=== PATIENT | male | born 1985 | race African-American/Black ===

== ENCOUNTER 2017-11-23 23:14 | Emergency (ER) | payer OTHER ==
[~2017-11-23] VITALS: Ht 172.7 cm; Wt 154.2 kg
[~2017-11-23 23:14] MED LIST: AMOXICILLIN875 MG PO; BACTRIM DS TAB1 EACH PO; ERYTHROMYCIN E3.5 G3 OP; FLEXERIL PO; FLONASE 0.05%50 MCG NASAL; IBUPROFEN 600600 M1 PO; IBUPROFEN 800800 M1 PO; IBUPROFEN 800800 MG PO; NAPROSYN500 MG PO; NOHOMEMEDICATIONS; NORCO 5-325 TA1 EACH PO; PROMETHAZINE-C120 ML PO; SUDAFED30 MG PO; TRAMADOL 50 MG50 MG PO; ULTRAM 50MG TAB50 MG PO; ZPAK PO
[2017-11-23] MEDS ORDERED: TESSALON PERLE100 MG PO (23:53)
[2017-11-23] MEDS ORDERED: PREDNISONE 20 M20 MG PO (23:53)
== END 2017-11-24 01:40 | disposition home or self-care (01) ==
LOC: ER 23:14
DX: J06.9 Acute upper respiratory infection, unspecified (principal)

== ENCOUNTER 2019-08-21 10:29 | Emergency (ER) | payer OTHER ==
[~2019-08-21] VITALS: Ht 172.7 cm; Wt 154.2 kg
[~2019-08-21 10:29] MED LIST changes: +PREDNISONE 20 M20 MG PO; +TESSALON PERLE100 MG PO
[2019-08-21 11:39] LABS: ABSOLUTE NEUTROPHILS 4.7 thou/uL (1.4-8.2); BASOPHILS 0.7 % (0.0-2.0); EOSINOPHILS 4.1 % (0.0-3.0); HEMATOCRIT 43.3 % (42.0-52.0); HEMOGLOBIN 14.5 gm/dL (14.0-18.0); LYMPHOCYTES 25.1 % (24.0-44.0); MCH 28.5 pg (26.0-34.0); MCHC 33.5 g/dL (28.0-37.0); MONOCYTES 6.7 % (1.0-8.0); PLATELET COUNT 238 thou/uL (150-400); POLYS 63.4 % (36.0-66.0); RDW 15.3 % (10.5-14.5); WBC 7.4 thou/uL (4.0-11.0)
[2019-08-21 11:46] LABS: ANION GAP 9 mmol/L (7-16); BUN 10 mg/dL (7-18); CALCIUM 9.5 mg/dL (8.5-10.1); CHLORIDE 104 mmol/L (98-107); CO2 27 mmol/L (21-32); CREATININE 1.3 mg/dL (0.7-1.3); GLUCOSE 110 mg/dL (74-106); POTASSIUM 4.2 mmol/L (3.5-5.1)
[2019-08-21 11:55] LABS: TROPONIN-I <0.06 ng/mL (<0.06)
[2019-08-21 11:59] LABS: SODIUM 140 mmol/L (136-145)
[2019-08-21 12:45] VITALS: BP 110/62
--- NOTE | 2019-08-22 07:59 | EKG ---
[place] [address] [employer] 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: [facility] : 1985 Requested By: Matt Lynch Order Number: [id number] MD: Theron King Measurements Intervals [place] Rate: 72 P: 45 CO: 177 QRS: -15 QRSD: 89 T: -26 QT: 377 QTc: 413 Interpretive Statements Sinus rhythm Nonspecific T wave abnormality No previous ECG available for comparison Electronically Signed On 08-22-2019 7:59:09 WINDING RACK OPERATOR by Theron King [email or web address] <ELECTRONICALLY SIGNED> By: Theron King MD, [facility] 08/22/19 [id number] Theron King MD, FACC /EPI
== END 2019-08-21 12:46 | disposition home or self-care (01) ==
LOC: ER 10:29
PROVIDERS: Emergency Medicine
DX: R60.0 Localized edema (principal); R05 Cough

== ENCOUNTER 2020-03-24 21:53 | Emergency (ER) | payer OTHER ==
[~2020-03-24] VITALS: Ht 172.7 cm; Wt 154.2 kg
[2020-03-24 21:59] VITALS: BP 135/69
[2020-03-25 00:20] LABS: ABSOLUTE NEUTROPHILS 4.7 thou/uL (1.4-8.2); BASOPHILS 0.7 % (0.0-2.0); HEMATOCRIT 42.1 % (42.0-52.0); HEMOGLOBIN 14.4 gm/dL (14.0-18.0); LYMPHOCYTES 27.2 % (24.0-44.0); MCH 28.9 pg (26.0-34.0); MCHC 34.1 g/dL (28.0-37.0); MCV 84.7 fL (80.0-100.0); PLATELET COUNT 237 thou/uL (150-400); POLYS 63.1 % (36.0-66.0); RBC 4.98 mil/uL (4.50-6.00); RDW 15.3 % (10.5-14.5); WBC 7.4 thou/uL (4.0-11.0)
[2020-03-25 00:32] LABS: CALCIUM 8.4 mg/dL (8.5-10.1); CREATININE 1.3 mg/dL (0.7-1.3); POTASSIUM 3.9 mmol/L (3.5-5.1)
[2020-03-25 00:38] LABS: ALBUMIN 3.5 g/dL (3.4-5.0); TOTAL BILIRUBIN 0.4 mg/dL (0.2-1.0); TOTAL PROTEIN 7.7 g/dL (6.4-8.2)
== END 2020-03-25 01:17 | disposition home or self-care (01) ==
LOC: ER 21:53
PROVIDERS: Emergency Medicine
DX: R60.0 Localized edema (principal); M79.604 Pain in right leg; M79.605 Pain in left leg; I10 Essential (primary) hypertension

== ENCOUNTER 2020-11-22 08:34 | Emergency (ER) | payer OTHER ==
[~2020-11-22] VITALS: Ht 172.7 cm; Wt 171.9 kg
[2020-11-22 09:44] VITALS: BP 110/58
== END 2020-11-22 09:45 | disposition home or self-care (01) ==
LOC: ER 08:34
DX: M25.571 Pain in right ankle and joints of right foot (principal); E11.9 Type 2 diabetes mellitus without complications

== ENCOUNTER 2021-01-25 12:28 | Emergency (ER) | payer OTHER ==
[~2021-01-25] VITALS: Ht 170.2 cm; Wt 149.7 kg
[2021-01-25] MEDS ORDERED: METFORMIN HCL500 MG PO (12:50)
[2021-01-25] MEDS ORDERED: DOXYCYCLINE 10100 MG PO (13:39)
[2021-01-25 13:52] VITALS: BP 142/76
== END 2021-01-25 13:55 | disposition home or self-care (01) ==
LOC: ER 12:28
DX: S30.861A Insect bite (nonvenomous) of abdominal wall, initial encounter (principal); E11.9 Type 2 diabetes mellitus without complications; W57.XXXA Bitten or stung by nonvenomous insect and other nonvenomous arthropods, initial encounter; Y93.89 Activity, other specified; Y92.89 Other specified places as the place of occurrence of the external cause; Y99.9 Unspecified external cause status

== ENCOUNTER 2021-02-12 19:45 | Emergency (ER) | payer OTHER ==
[~2021-02-12] VITALS: Ht 172.7 cm; Wt 155.1 kg
[~2021-02-12 19:45] MED LIST changes: +DOXYCYCLINE 10100 MG PO; +METFORMIN HCL500 MG PO
[2021-02-12 20:50] LABS: BASOPHILS 0.5 % (0.0-2.0); EOSINOPHILS 1.2 % (0.0-3.0); HEMATOCRIT 41.1 % (42.0-52.0); LYMPHOCYTES 14.8 % (24.0-44.0); MCH 28.6 pg (26.0-34.0); MCHC 34.2 g/dL (28.0-37.0); MCV 83.8 fL (80.0-100.0); MONOCYTES 7.9 % (1.0-8.0); PLATELET COUNT 256 thou/uL (150-400); POLYS 75.6 % (36.0-66.0); RDW 15.2 % (10.5-14.5); WBC 9.2 thou/uL (4.0-11.0)
[2021-02-12 20:58] LABS: ANION GAP 10 mmol/L (7-16); BUN 9 mg/dL (7-18); CALCIUM 9.6 mg/dL (8.5-10.1); CHLORIDE 103 mmol/L (98-107); CO2 26 mmol/L (21-32); CREATININE 1.4 mg/dL (0.7-1.3); GLUCOSE 108 mg/dL (74-106); POTASSIUM 4.2 mmol/L (3.5-5.1); SODIUM 139 mmol/L (136-145)
[2021-02-12 21:09] LABS: ALBUMIN 3.6 g/dL (3.4-5.0); LIPASE 94 U/L (73-393); SGOT 18 U/L (15-37); SGPT 25 U/L (16-63); TOTAL BILIRUBIN 0.4 mg/dL (0.2-1.0); TOTAL PROTEIN 7.8 g/dL (6.4-8.2); TROPONIN-I <0.06 ng/mL (<0.06)
[2021-02-12] MEDS ORDERED: LORATIDINE 10 M10 M1 PO (21:55)
[2021-02-12 22:00] VITALS: BP 127/80
--- NOTE | 2021-02-13 07:05 | EKG ---
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 : 1985 Requested By: Justin Boone Order Number: [id number] MD: Phuc Irby Measurements Intervals [place] Rate: 90 P: 57 ID: 162 QRS: -27 QRSD: 83 T: 10 QT: 336 QTc: 411 Interpretive Statements Sinus rhythm Borderline left axis deviation Abnormal R-wave progression, early transition Compared to ECG 08/21/2019 11:36:12 T-wave abnormality no longer present Electronically Signed On 02-13-2021 7:05:42 CDT by Phuc Irby [email or web address] <ELECTRONICALLY SIGNED> By: Phuc Irby MD, [facility] 02/13/21704 11 11 Phuc Irby MD, FACC /EPI
== END 2021-02-12 22:19 | disposition home or self-care (01) ==
LOC: ER 19:45
PROVIDERS: Emergency Medicine
DX: T67.5XXA Heat exhaustion, unspecified, initial encounter (principal); Z20.822 Contact with and (suspected) exposure to COVID-19; R05 Cough; R53.1 Weakness; E11.9 Type 2 diabetes mellitus without complications; X30.XXXA Exposure to excessive natural heat, initial encounter; Y93.89 Activity, other specified; Y92.89 Other specified places as the place of occurrence of the external cause; Y99.8 Other external cause status

== ENCOUNTER 2021-10-27 19:48 | Emergency (ER) | payer OTHER ==
[~2021-10-27] VITALS: Ht 170.2 cm; Wt 176.9 kg
[~2021-10-27 19:48] MED LIST changes: +LORATIDINE 10 M10 M1 PO
[2021-10-27 21:40] LABS: ABSOLUTE NEUTROPHILS 5.2 thou/uL (1.4-8.2); BASOPHILS 0.6 % (0.0-2.0); EOSINOPHILS 4.1 % (0.0-3.0); HEMATOCRIT 42.9 % (42.0-52.0); HEMOGLOBIN 14.1 gm/dL (14.0-18.0); LYMPHOCYTES 24.1 % (24.0-44.0); MCH 27.7 pg (26.0-34.0); MCHC 32.9 g/dL (28.0-37.0); MCV 84.2 fL (80.0-100.0); MONOCYTES 7.3 % (1.0-8.0); PLATELET COUNT 270 thou/uL (150-400); POLYS 63.9 % (36.0-66.0); WBC 8.1 thou/uL (4.0-11.0)
[2021-10-27] MEDS ORDERED: PREDNISONE 20 M20 MG PO (23:13)
[2021-10-27 23:23] LABS: CALCIUM 8.9 mg/dL (8.5-10.1); CREATININE 1.2 mg/dL (0.7-1.3)
[2021-10-27 23:25] LABS: ALBUMIN 3.4 g/dL (3.4-5.0); MAGNESIUM 1.9 mg/dL (1.8-2.4); TOTAL BILIRUBIN 0.2 mg/dL (0.2-1.0); TOTAL PROTEIN 7.4 g/dL (6.4-8.2)
[2021-10-28 01:40] VITALS: BP 119/59
== END 2021-10-28 01:41 | disposition home or self-care (01) ==
LOC: ER 19:48
PROVIDERS: Student in an Organized Health Care Education/Training Program
DX: R06.02 Shortness of breath (principal); I11.0 Hypertensive heart disease with heart failure; I50.9 Heart failure, unspecified; E11.9 Type 2 diabetes mellitus without complications; Z79.899 Other long term (current) drug therapy; Z79.84 Long term (current) use of oral hypoglycemic drugs

== ENCOUNTER 2021-10-31 19:32 | Inpatient (IN) | payer OTHER ==
[~2021-10-31] VITALS: Ht 172.7 cm; Wt 181.9 kg
[2021-10-31 19:49] VITALS: BP 149/79
[2021-10-31 20:06] LABS: HEMATOCRIT 41.2 % (42.0-52.0); HEMOGLOBIN 13.6 gm/dL (14.0-18.0); MCH 27.7 pg (26.0-34.0); MCHC 33.1 g/dL (28.0-37.0); MCV 83.6 fL (80.0-100.0); RBC 4.93 mil/uL (4.50-6.00); RDW 14.9 % (10.5-14.5); WBC 11.4 thou/uL (4.0-11.0)
[2021-10-31 20:16] LABS: CALCIUM 8.7 mg/dL (8.5-10.1); CREATININE 1.3 mg/dL (0.7-1.3); POTASSIUM 3.9 mmol/L (3.5-5.1)
[2021-10-31 20:26] LABS: ALBUMIN 3.3 g/dL (3.4-5.0); MAGNESIUM 2.2 mg/dL (1.8-2.4); TOTAL BILIRUBIN 0.3 mg/dL (0.2-1.0); TOTAL PROTEIN 7.3 g/dL (6.4-8.2)
[2021-10-31] MEDS ORDERED: FLUTICASONE PRO16 GM NASAL (20:33)
[2021-10-31] MEDS ORDERED: PROAIR HFA8.5 GM INH (20:33)
[2021-11-01 01:47] VITALS: BP 101/51
[2021-11-01 07:05] LABS: CALCIUM 8.3 mg/dL (8.5-10.1); CREATININE 1.3 mg/dL (0.7-1.3); POTASSIUM 4.1 mmol/L (3.5-5.1)
[2021-11-01 07:11] VITALS: BP 131/72
[2021-11-01] MEDS ORDERED: LASIX 40 MG TAB40 MG (10:30)
[2021-11-01 10:40] LABS: AMP/METHAMP Negative (Negative); BARBITURATES Negative (Negative); BENZODIAZEPINES Negative (Negative); COCAINE Negative (Negative); METHADONE Negative (Negative); OPIATES Negative (Negative); PCP Negative (Negative)
[2021-11-01 15:20] VITALS: BP 149/72
--- NOTE | 2021-11-01 16:05 | NUR ---
RN ASSUMED PT'S CARE AT 0700AM, PT IS A&OX4, PT IS OFF O2 AT THIS MORNING , PT'S O2SAT STAY AT 93-96% AT ROOM AIR, PT STILL HAS COUGHING AND SOB WITH ACTIVITIES, PT 'S IV ABX HAS CHANGED TO PO PER ORDER, BUT PT NEEDS O2 3-4L/MIN/NC WITH PT SLEEPING, RN HAS NOTIFIED DR ABOUT PT REFUSED BIPAP WHEN PT IS SLEEPING FOR SLEEP APNEA, PT DENIES PIAN AND N/V BY THIS TIME.
[2021-11-01 19:13] VITALS: BP 134/73
[2021-11-02 02:59] VITALS: BP 122/68
--- NOTE | 2021-11-02 06:09 | NUR ---
Patient progressing towards outcome goals. Vital signs and rhythm stable. Denies pain. Up adlib without difficulty. Slept with 3L/NC, patient is mouth breather and snoring a lot, desats in mid 80'S. Has history of SONJA but refuses to wear CPAP, prefers nasal cannula. Sats mid to upper 90's when awake.
--- NOTE | 2021-11-02 08:29 | EKG ---
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 : 1985 Requested By: Pooja Magana Order Number: [id number] MD: Mitch Conroy Measurements Intervals [place] Rate: 88 P: 54 SD: 163 QRS: -23 QRSD: 87 T: -6 QT: 363 QTc: 440 Interpretive Statements Sinus rhythm Borderline left axis deviation Abnormal R-wave progression, early transition Borderline T wave abnormalities Baseline wander in lead(s) I,II,aVR,aVL,aVF Compared to ECG 10/27/2021 20:13:53 No significant changes Electronically Signed On 11-02-2021 8:29:33 ROPE SILICA MACHINE OPERATOR by Mitch Conroy [email or web address] <ELECTRONICALLY SIGNED> By: Mitch Conroy MD 11/02/21828 43 43 Mitch Conroy MD /EPI
[2021-11-02 08:59] VITALS: BP 154/96
[2021-11-02] MEDS ORDERED: LEVOFLOXACIN500 MG PO (10:17)
[2021-11-02] MEDS ORDERED: GUAIFENESIN DM S5 ML PO (10:18)
--- NOTE | 2021-11-02 12:25 | NUR ---
INITIAL ASSESSMENT/DISCHARGE NOTE: NEHA reviewed chart and spoke with nursing and attending physician. Pt was admitted from home due to dyspnea/BLE edema/URI. Pt with hx morbid obesity/SONJA/DM. Pt is medically stable for discharge home today. Script written for pt to have home O2 (2L) at HS. Nocturnal desat study has not yet been completed. [facility] screened pt. Pt does not qualify for [place]-Medicaid. Pt is over assets. NEHA met with pt at bedside. Introduced role of SW. Pt is alert/orientated x 4. Pt states he lives at home alone. Prior to admission, pt was independent with ADLs. SW discussed need for home O2. Pt verbalized understanding. SW confirmed pt's home address and phone number and discussed that O2 will need to be paid out of pocket, as he does not have health insurance. Pt agreeable. Options for DME companies provided. No preference voiced. NEHA contacted [facility] liaison, who states monthly cost for a concentrator is $115 and there is a $30 set up fee. $22 per portable tank if needed. NEHA discussed cost with pt, who is agreeable. NEHA faxed O2 referral to [facility]. Nocturnal desat order put in today by attending physician. NEHA contacted attending physician to determine if pt needs to stay one more night for completion of study. Awaiting input from physician at this time. Contact info for [facility] placed in pt's discharge summary. Pt states he will drive himself home when discharged. Pt's new prescriptions sent to his pharmacy. Pt denies needing financial assitance for meds. NEHA updated pt's nurse. NEHA is following to finalize discharge plan.
[2021-11-02 12:49] VITALS: BP 154/96
[2021-11-02 15:19] VITALS: BP 146/101
--- NOTE | 2021-11-02 18:47 | NUR ---
RN ASSUMED PT'S CARE AT 0900AM, PT IS A&OX4, PT ONLY NEED O2 3L/MIN/NC WHEN HE IS SLEEPING , DUE TO DYSPNEA AND DESAT AT SLPLEEPING TIME, PT'S O2SAT AND VS ARE STABLE AT DAY SHIFT, PT'S SOB AND COUGHING HAVE IMPROVED, PT WILL HAVE CONTINUING MONITOR O2 AT NIGH TIME , PT MAY DC TO HOME WITH O2 TOMORROW .
[2021-11-02 19:59] VITALS: BP 124/60
== END 2021-11-03 | disposition home or self-care (01) | DRG 202 ==
LOC: ER 19:32 → EROBS 23:03 → 3W 11-01 01:49
PROVIDERS: Hospitalist; Nurse Practitioner Family; ADMIT Internal Medicine; ATTEND Internal Medicine
DX: J20.9 Acute bronchitis, unspecified (principal); Z68.44 Body mass index [BMI] 60.0-69.9, adult; Z20.822 Contact with and (suspected) exposure to COVID-19; E66.01 Morbid (severe) obesity due to excess calories; I11.0 Hypertensive heart disease with heart failure; I50.9 Heart failure, unspecified; E11.9 Type 2 diabetes mellitus without complications
CPT/HCPCS: 10879